=== PATIENT | female | born 1955 | race Caucasian/White ===

== ENCOUNTER → 2020-10-07 08:32 | Outpatient (BNVA) | payer OTHER, SELFPAY | PROVIDERS: PCP Family Medicine; Visit Provider Orthopaedic Surgery | DX: M22.2X1 Patellofemoral disorders, right knee (principal); M22.2X2 Patellofemoral disorders, left knee | CPT/HCPCS: 99202 ==

== ENCOUNTER 2025-04-11 09:07 | Outpatient (AMB) | payer MEDICARE, OTHER, SELFPAY ==
--- OUTSIDE RECORDS SUMMARY | 2024-11-29 05:30 | XMS_ITS ---
Author Organization [facility] Address [address] [place] [address] Care Team Providers Care Material Attendant Name Role Phone Tuan PEREZ, Jack Primary Care Provider Mayra Felipe Unavailable [phone] Encounters Encounter Location Date Provider Diagnosis [facility] [address] [place] [address] 11/29/2024 Mayra Cortez Plan Of Treatment No Information Progress Notes * Ritu CHAMORRODOB: (69 yo F)Acc No.[id number]:11/29/2024 Progress Note Patient: Ritu JIM Provider: Dionte Cortez DPM :1955 A ge:68 Y S ex:Female Date:11/29/2024 Address: [address] [id number] Pcp:Jack Dickerson MD Subjective: * Chief Complaints: * * Medical History: Objective: * Vitals: Assessment: Plan: * Treatment: * Images: * The named appointment provid er may or may not be the originator of this progress note, and it is not deemed complete until electronically signed by the appointment provider. Sign off status: Pending * Provider: Dionte Cortez DPM Date: 0 11/29/2024 Generated for Printi chuy/Kelley/eTransmitting on: 1 09:35 AM EDT
--- NOTE | 2025-04-11 09:09 | HO.SPINEOV ---
Vital Signs 04/11/25 09:10 Height 5 ft 3 in Weight 111 lb BMI 19.7 Intake Visit Reasons: low back pain Intake Note: Ms. Chamorro is here today c/o Leg pain that radiates up to the back. Human Services Case Manager Required: No Allergies fluticasone (From Flonase) Adverse Reaction (Verified 10/07/20 08:41) mental Stuff Cortisone Injection Adverse Reaction (Unknown, Uncoded 04/11/25 09:18) Unknown Physical Exam Vital Signs: BMI result Body Mass Index 19.7 Assessment & Plan Assessment & Plan (1) Lumbar stenosis with neurogenic claudication: Code(s): M48.062 - Spinal stenosis, lumbar region with neurogenic claudication Category: Medical Plan Dear colleague On April 11, 2025, I saw your patient Ritu Chamorro for a 2nd opinion regarding back pain and bilateral leg pain. HPI: This 69-year-old female is suffering from progressive bilateral buttock and thigh pain/discomfort/fatigue that comes after walking prolonged distances. She used to be able to walk 10 miles but over time this was reduced to maybe 2 miles due to the previous mentioned symptoms. In addition to the bilateral leg symptoms she has back pain in the lumbar sacral area. Her back and give out which will exacerbate her symptoms. The back pain is worse night and when she wakes up. The following conservative treatment options were tried without success antiinflammatories, tylenol, physician physical therapy and acupuncture. PMH: None Medications: None. She used to use ibuprofen for his symptoms. Allergies: Flonase Social history: Lives alone. Nonsmoker Physical Exam: Pleasant female. No restrictions in motion of the lumbar spine. Straight leg raise is negative. No motor or sensory deficits. No pathological reflexes. Radiological Studies: MRI done at [facility] on 06/14/2024 shows degenerative disc disease L3-4 and L4-5, father that L3-4 and severe at L4-5. There is [id number] central canal stenosis L4-5 with bilateral lateral recess stenosis and moderate bilateral L4 foraminal stenosis. Impression/Plan: This patient is suffering from back pain and neurogenic claudication. The neurogenic symptoms are worse in the back pain. The symptoms are most likely related to the L4-5 segment. The option would be to do an L4-5 lumbar fusion to indirectly decompress the nervous structures and address the back pain. I told her that treatment for back pain is less predictable than treating her leg pains. The other option would be to do a simple lumbar decompression, which would be my preferably treatment in her case. I described a L4-5 laminotomy and expected postoperative outcome. She will let me know if she wants to proceed. Thank you for allowing me to participate in your patients care. total time spent was 50 minutes in counseling ,coordination of plan, personal review of imaging, surgical decision making and subsequent plan Shane Oscar MD, PhD [facility] Trained Neurosurgeon Director, [facility] Coding Level of Care Code New Pt Level 4 (43757) Diagnoses Lumbar stenosis with neurogenic claudication M48.062
[2025-04-11 09:10] VITALS: BMI 19.7
--- OUTSIDE RECORDS SUMMARY | 2025-04-11 09:35 | XMS_ITS | Patient Health Record ---
Author Organization [facility] Address [address] [place] [address] Care Team Providers Care Creative Developer Name Role Phone Jack Dickerson MD Primary Care Provider Mayra Felipe Unavailable [phone] Allergies Allergen (clinical drug ingredient) Drug/Non Drug Allergy documented on EMR Reaction Allergy Type Onset Date Status fluticasone Flonase mental status change Drug Allergy Active Reason For Referral No Information Medications Medication SIG (Take, Route, Fr equency, Duration) Notes Start Date End Date Status Ibuprofen PRN Not-Taking Diclofenac Sodium No t-Taking Social History Tobacco Use: Social History Observation Description Date Details (start date - stop date) Never Smoker NA - NA Tobacco Use/Smoking Question Answer Notes Are you a: nonsmoker Additional Findings: Tobacco Non-User Aggressive non-smoker Alcohol Screen Question Answer Notes Did you have a drink containing alcohol in the p ast year? No Points 0 Interpretation Negative Tobacco use other than smoking: Question Answer Notes Are you an other tobacco user? No Problems Problem Type SNOMED Code ICD Code Onset Dates Problem Status W/U Status Risk Notes Problem Plantar wart (61714215) Plantar wart (B07.0) Active confirmed Problem Neuropathy (078862126) Neuropathy (G62.9) Active confirmed Vital Signs Blood pressure diastolic 83 mm Hg 09/06/2024 Height 5ft4in in 09/06/2024 Blood pressure systolic 125 mm Hg 09/06/2024 Weight 112 lbs 09/06/2024 BMI 19.22 kg/m2 09/06/2024 Encounters Encounter Location Date Provider Diagnosis [facility] [address] [address] 04/24/2024 Mayra Brennana Plantar wart B07.0 ; Sprain of right foot, initial encounter S93.601A ; Right foot pain M79.671 ; Left foot pain M79.672 ; 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 and Peroneal tendinitis, right leg M76.[address] [address] 06/14/2024 Mayra Brennana Plantar wart B07.0 ; Sprain of right foot, initial encounter S93.601A ; Left foot pain M79.672 ; 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 and Peroneal tendinitis, right leg M76.[address] [address] 09/06/2024 Mayra Brennana Left foot pain M79.672 and [facility] [address] 04/24/2024 Mayra Pericbabak [address] [address] 11/15/2024 Mayra Cortez Assessments Encounter Date Diagnosis (ICD Code) Assessment Notes Treatment Notes Treatment Clinical Notes Section Notes 04/24/2024 Plantar wart (ICD-10 - B07.0) 04/24/2024 Sprain of right foot, initial encounter (ICD-10 - S93.601A) 06/14/2024 Plantar wart (ICD-10 - B07.0) 06/14/2024 Sprain of right foot, initial encounter (ICD-10 - S93.601A) 09/06/2024 Left foot pain (ICD-10 - M79.672) 06/14/2024 Left foot pain (ICD-10 - M79.672) 09/06/2024 Plantar wart (ICD-10 - B07.0) 04/24/2024 Right foot pain (ICD-10 - M79.671) 04/24/2024 Left foot pain (ICD-10 - M79.672) 06/14/2024 Os peroneum syndrome of right foot (ICD-10 - M77.51) 06/14/2024 Peroneal tendinitis, right leg (ICD-10 - M76.71) 04/24/2024 Os peroneum syndrome of right foot (ICD-10 - M77.51) 04/24/2024 Peroneal tendinitis, right leg (ICD-10 - M76.71) Plan Of Treatment Pending Test Test Name Order Date X ray : Foot, right 3V 04/24/2024 Insurance Providers Payer Name Payer Address Payer Phone Subscriber Number Group Number Insured Name Patient Relationship to Insured Coverage Start Date Coverage End Date Medicare National Govt [facility] [address] [place] [address] [id number] Ritu Mendoza Self - patient is the insured [place] [address] [address] [place] [id number] Ritu Mendoza Self - patient is the insured Medical (General) History Medical History History ICD Code Anxiety Back,Hip,and Knee pain Depression Headaches/Migraines Psoriasis/eczema Warts Measles Mumps Chicken pox covid-19 Surgical History Surgery Date(Month/Year) removal of fatty lipose on neck 15 years ago.
--- OUTSIDE RECORDS SUMMARY | 2025-04-11 09:35 | XMS_ITS | Clinical Summary ---
Author Organization [facility] Address [address] [place] [address] Care Team Providers Care Machine Shop Apprentice Name Role Phone Unavailable Primary Care Provider Unavailabl e Allergies Active Allergy Reactions Criticality Noted Date Comments Fluticasone 12/23/2014 Medications * This document contains information received from the source organization and may not represent a complete record from that organization. No known medications Social History Tobacco Use Types Packs/Day Years Used Date Smoking Tobacco: Never Alcohol Use Standard Drinks/Week Comments Not Asked 0 (1 standard drink = 0.6 oz pur e alcohol) Comments Unknown Sex and Gender Information Value Date Recorded Sex Assigned at Not on file Legal Sex Female 11:10 AM EDT Gender Identity Not on file Sexual Orientation Not on file Last Filed Vital Signs Vital Sign Reading Time Taken Comments Blood Pressure 118/80 12/23/2014 9:22 AM EDT Pulse 58 12/23/2014 9:22 AM EDT Temperature - - Respiratory Rate - - Oxygen Saturation - - Inhaled Oxygen Concentration - - Weight 52.2 kg (115 lb) 12/23/2014 9:22 AM EDT Height 162.6 cm (5' 4 ) 12/23/2014 9:22 AM EDT Body Mass Index 19.74 12/23/2014 9:22 AM EDT Plan of Treatment Health Maintenance Due Date Last Done Comments Hepatitis C Screening 1955 DTaP/Tdap/Td (1 - Tdap) 12/05/1973 Mammogram/Breast Imaging 1995 Pneumococcal 50+ years (1 of 1 - PCV) 12/05/2005 Zoster (Shingrix) (1 of 2) 12/05/2005 Bone Density 12/05/2020 COVID-19 Vaccine ( - 2023-2 5 season) 2025 Influenza (#1) 2025 RSV (1 - 1-dose 75+ series) 12/05/2030 HPV Vaccine (No Doses Required) Completed Hep A Aged Out No longer eligi ble based on patient's age to complete this topic Hep B Aged Out No longer eligi ble based on patient's age to complete this topic Hib Aged Out No longer eligi ble based on patient's age to complete this topic Meningococcal ACWY Aged Out No longer eligible based on patient's age to complete this topic Pap Smear Discontinued Zoster (Zostavax) Discontinued
== END 2025-04-11 09:53 | disposition home or self-care (01) ==
LOC: HO.HNS 09:08
PROVIDERS: PCP Internal Medicine; Visit Provider Neurological Surgery
DX: M48.062 Spinal stenosis, lumbar region with neurogenic claudication (principal)
CPT/HCPCS: 99204

== ENCOUNTER → 2025-04-11 09:07 | Outpatient (BNVA) | payer MEDICARE, OTHER, SELFPAY | PROVIDERS: PCP Internal Medicine; Visit Provider Neurological Surgery | DX: M48.062 Spinal stenosis, lumbar region with neurogenic claudication (principal) | CPT/HCPCS: 99202 ==